=== PATIENT | female | born 1995 | race Caucasian/White ===

== ENCOUNTER → 2021-03-23 12:46 | Outpatient (CLI) | payer OTHER, SELFPAY ==
--- NOTE | ~2021-03-23 | XR_ITS ---
XR hand RT min 3V DATE: 03/23/2021 13:10 INDICATION: Right hand injury TECHNIQUE: 3 views COMPARISON: None FINDINGS: No fracture or dislocation, periosteal reaction or bone destruction, erosive change or cm drocalcinosis. IMPRESSION: Negative Reviewed, dictated and finalized at location A. T GRADER IMPRESSION: Negative
== END ==
PROVIDERS: PCP Physician Assistant; Visit Provider Physician Assistant
DX: S69.91XA Unspecified injury of right wrist, hand and finger(s), initial encounter (principal); X58.XXXA Exposure to other specified factors, initial encounter
CPT/HCPCS: 73130

== ENCOUNTER 2021-04-10 15:46 | Outpatient (CLI) | payer OTHER, SELFPAY ==
--- NOTE | ~2021-04-10 | MR_ITS ---
EXAMINATION: MR brain/brain stem wo/w con DATE: 04/10/2021 16:52 INDICATION: New daily persistent headache. TECHNIQUE: Magnetic resonance imaging (MRI) of the brain and brainstem was performed without and with 10 mL MultiHance intravenous contrast. Sequences included sagittal and axial T1-weighted FSE, axial diffusion-weighted FS EPI, axial T2*-weighted GRE, axial T2-weighted FLAIR Propeller, and axial T2-we ighted Propeller. Postcontrast sequences included axial and coronal T1-weighted FSE. Apparent diffusi on coefficient (ADC) maps were created. COMPARISON: None. FINDINGS: There is no intracranial hemorrhage, acute infarction, or abnormal intracranial mass lesion . There are arachnoid cysts anterior to the frontal lobes measuring up to 3.5 x 1.3 cm on the right. The ventricles are normal in size. The paranasal sinuses are clear. There is a trace right mastoid ef fusion. There are changes of scleral banding procedures bilaterally. There is injected material in le ft ocular globe. IMPRESSION: 1. No etiology for the patient's symptoms. Reviewed, dictated and finalized at location A. LSTERY CUTTER
[2021-04-10 16:20] LABS: Estimated Glomerular Filt Rate > 60
== END 2021-04-10 15:47 | disposition home or self-care (01) ==
LOC: ANHIMG 15:51
PROVIDERS: PCP Physician Assistant; Visit Provider Physician Assistant
DX: G44.52 New daily persistent headache (NDPH) (principal)
CPT/HCPCS: 70553; A9577